=== PATIENT | male | born 1970 | race Caucasian/White ===

== ENCOUNTER 2019-02-01 23:27 | Emergency (ER) | payer BC ==
[2019-02-01] MEDS ORDERED: MAGNESIUM SULFATE SYG 4.06 MEQ/ML SYRINGE ONE (23:29)
[2019-02-01] MEDS ORDERED: EPINEPHrine 10 ML SYRINGE (0.1 MG/ML) ONE (23:29)
[2019-02-01] MEDS ORDERED: NALOXONE 1 MG/ML 2 ML SYRINGE ONE (23:29)
[2019-02-01] MEDS ORDERED: SODIUM BICARB 8.4% 50 ML SYR (1 MEQ/ML) ONE (23:29)
[2019-02-01] MEDS ORDERED: LIDOCAINE 2% SYG (PF) 100 MG/5 ML ONE (23:29)
[2019-02-01] MEDS ORDERED: ESMOLOL 100 MG/10 ML VIAL ONE (23:29)
[2019-02-01] MEDS ORDERED: AMIODARONE 50 MG/ML 3 ML VIAL IV ONE (23:29)
[2019-02-01] MEDS ORDERED: WATER IV ONE (23:29)
[2019-02-01] MEDS ORDERED: DEXTROSE 5% IV ONE (23:29)
[2019-02-02 00:41] VITALS: BP 0/0; PULSE 0; RESP 0
--- NOTE | 2019-02-02 01:12 | ED ---
General Adult HPI - General Stated complaint: Cardiac Arrest Time Seen by Provider: 02/01/19 23:42 Source: family, EMS, RN notes reviewed Mode of arrival: wheelchair - History of Present Illness Initial comments: 49 -year-old male presents as out of Hospital cardiac arrest. Initial call by EMS was for respiratory distress. History obtained from paramedics indicates that firefighters weren't seen with shockable rhythm. CPR was immediately initiated and patient was defibrillated. IV was established by paramedics he was intubated with Giles airway and ultimately placed on the Christian defibrillator device. Patient was transported with CPR in progress, 8 mL LS protocol. He was given a proximally 6 defibrillations, he is given a total 450 mg of amiodarone he was given epinephrine according to ACLS protocol. Please refer to manager rental documentation for exact details. There was no return of spontaneous circulation, there was no change in rhythm throughout transport time. - Related Data Home Medications Medication Instructions Recorded Confirmed No Known Home Medications 02/02/19 02/02/19 Allergies Allergy/AdvReac Type Severity Reaction Status Date / Time No Known Allergies Allergy Verified 02/02/19 00:42 Review of Systems ROS Statement: Those systems with pertinent positive or pertinent negative responses have been documented in the HPI. ROS Other: All systems not noted in ROS Statement are negative. Past Medical History Past Medical History: No Reported History History of Any Multi-Drug Resistant Organisms: None Reported Past Surgical History: No Surgical Hx Reported Past Psychological History: No Psychological Hx Reported Smoking Status: Current every day smoker Past Alcohol Use History: None Reported Past Drug Use History: None Reported General Exam - General Exam Comments Initial Comments: Patient in cardiopulmonary arrest intubated with a Giles airway, bilateral chest rise and breath sounds with BVM, compressions by Christian defibrillator device, patient does have femoral pulses with compression. No spontaneous pulses. Patient is to 4 and cyanotic. Skin is clear. Pupils are fixed and dilated. Course Vital Signs 02/01/19 23:30 Pulse Rate 0 L Respiratory 0 L Rate Blood Pressure 0/0 O2 Sat by Pulse 0 L Oximetry Medical Decision Making - Medical Decision Making 49-year-old male in cardiopulmonary arrest, ventricular fibrillation. Patient continues to remain in ventricular fibrillation. He is given every opportunity by both paramedics and in the emergency department. He is given 450 mg of amiodarone, epinephrine, lidocaine, as well bolus, sodium bicarbonate, magnesium, he's defibrillated with 2 simultaneous 200 J defibrillators. Despite best efforts patient fails to have return of spontaneous circulation. Ultimately time of is 2340. Total down time approximately one hour with no change in rhythm, no signs of life. Disposition Clinical Impression: Ventricular fibrillation, Cardiopulmonary arrest Disposition: Condition: Undetermined Is patient prescribed a controlled substance at d/c from ED?: No Referrals: None,Stated [Primary Care Provider] - 1-2 days Preliminary Cause of : V. fib arrest
[2019-02-02 04:58] LABS: Glucose,Whole Blood 160 mg/dL (75-99)
== END 2019-02-02 04:19 | disposition expired ==
LOC: EDBD → EC 23:27
DX: I49.01 Ventricular fibrillation (principal); I46.9 Cardiac arrest, cause unspecified; F17.200 Nicotine dependence, unspecified, uncomplicated
CPT/HCPCS: 36415; 99285; 92950; J0282; J3475; J2001; J0171; J2310